=== PATIENT | female | born 1975 | race Caucasian/White ===

== ENCOUNTER 2024-10-14 18:58 | Emergency (ER) | payer OTHER, SELFPAY ==
[2024-10-14 19:02] VITALS: BP 156/111
--- NOTE | 2024-10-14 21:39 | ED.GENMED ---
History of Present Illness
General
Chief Complaint: DVT/Possible Blood Clot
Time Seen by Provider: 10/14/24 21:27
History of Present Illness
History of Present Illness:
Patient is a 48-year-old woman with history of lymphedema to the right lower extremity presenting to the emergency department worsening right lower leg swelling. Patient states that she went to her acupuncture appointment when they noticed that her
right leg was slightly more swollen than usual. Patient denies any recent travel hemoptysis chest pain history of blood clot. She does state that she has had chronic lymphedema secondary to injuries as well as some knee swelling which is old. No
numbness tingling. No weakness. No fevers chills. No redness.
Phy Exam
Physical Exam
Physical Exam:
GENERAL: in no acute distress
HEENT: normocephalic, extraocular movements intact
NECK: normal inspection
RESPIRATORY: no respiratory distress
CARDIOVASCULAR: regular rate and rhythm
EXTREMITIES: non-tender, right lower extremity with mild swelling, no redness or tenderness, 2+ distal pulses, normal cap refill, normal sensation
NEUROLOGIC: awake and alert, moves all extremities
SKIN: warm
Course
Orders/Labs/Results
Orders:
Orders
10/14/24 19:06
US Legs, Right [US Periph Venous LOWER Ext RT] Urgent
Comment:
Reason For Exam: swelling/pain
Vital Signs
Initial and Last Documented VS:
Initial Vital Signs
Temp Pulse Resp BP Pulse Ox
98.9 F 89 16 156/111 96
10/14/24 19:02 10/14/24 19:02 10/14/24 19:02 10/14/24 19:02 10/14/24 19:02
Last Documented Vital Signs
Temp Pulse Resp BP Pulse Ox
98.9 F 89 16 156/111 96
10/14/24 19:02 10/14/24 19:02 10/14/24 19:02 10/14/24 19:02 10/14/24 20:48
MDM/Problems Addressed
Differential Diagnosis Includes:
Patient is a 48-year-old woman with history of right-sided lymphedema presenting to the emergency department with worsening right lower extremity swelling. On arrival vitals are notable for being hypertensive and on exam she does have mild
swelling. Will rule out DVT history and exam not consistent with cellulitis. Ultrasound obtained prior to my evaluation. It is negative for DVT. She does have a Buitrago's cyst as well as a small supratellar effusion. Patient advised on resting
compression wrap and elevating. She does state that she has a compression machine that she uses at home. Patient advised to also watch out for signs of infection. Strict return precautions given. Will discharge at this time.
*Critical Care Note
Total Time (30-74mins, 75-104mins- exclusive of procedures): Not Applicable
ED Attending Note
-
Portions of this chart may have been created with voice recognition software.� Occasional wrong word or��sound alike� substitutions may have occurred due to the inherent limitations of voice recognition software.
Discharge Plan
Departure
Patient Disposition: Home (Routine Discharge)
Date of Disposition: 10/14/24
Time of Disposition: 21:38
Patient with high blood pressure during this ER visit?: Yes
Discharge Problem:
Leg swelling, Buitrago cyst
Instructions: Buitrago's Cyst (DC)
Referrals:
Beatris Tinajero MD [Family Provider] -
Activity Restrictions/Additional Instructions:
You were seen in the Emergency Department today for leg swelling. While you were here we performed an ultrasound, which was reassuring. Please make sure you continue to rest ice elevate and use a compression machine. Please watch out for signs of
infection which include fever redness warmth and/or wound.
We would like for you to follow up with your primary care physician for further evaluation. If you experience fever, worsening of your symptoms, or develop any other new or concerning symptoms, please return to the Emergency Department immediately.
Please see the attached sheet for additional information.
Interventions
Interventions:
*Risk Screen - Suicide Last Done: 10/14/24 19:02
*General Assessment Last Done: 10/14/24 19:02
*Neglect/Abuse Screening Last Done: 10/14/24 19:02
*ED- Fall Risk Assessment Last Done: 10/14/24 19:02
*ED COVID-19 Vaccine History Last Done: 10/14/24 19:02
ED- Cardiac Assessment Last Done: 10/14/24 20:48
ED- Pulmonary Assessment Last Done: 10/14/24 20:48
ED-Peripheral Vascular Assessment Last Done: 10/14/24 20:48
ED-Skin Assessment Last Done: 10/14/24 20:50
Discharge Date and Time
Print Language: TELUGU
== END 2024-10-14 22:08 | disposition home or self-care (01) ==
LOC: EMR 18:58
PROVIDERS: EMERGENCY PHYSICIAN Student in an Organized Health Care Education/Training Program; FAMILY PHYSICIAN Family Medicine; REFERRING PHYSICIAN Family Medicine
DX: M71.21 Synovial cyst of popliteal space [Baker], right knee (principal); R22.41 Localized swelling, mass and lump, right lower limb
CPT/HCPCS: 99284; 93971

== ENCOUNTER 2025-01-13 09:37 | Emergency (ER) | payer OTHER, SELFPAY ==
[2025-01-13 09:37] VITALS: BP 136/100
--- NOTE | 2025-01-13 09:46 | ED.GENMED ---
History of Present Illness
General
Chief Complaint: Musculo-Skeletal Complaint
Time Seen by Provider: 01/13/25 09:45
History of Present Illness
History of Present Illness:
PAST MEDICAL HISTORY AND REVIEW OF OLD RECORDS
- The patient has a history of anxiety and colitis. I reviewed records, the patient was seen here in September diagnosed with a Buitrago's cyst.
Note:
CHIEF COMPLAINT(S)
Left knee pain following reinjury.
HISTORY OF PRESENT ILLNESS
The patient is a 49-year-old female with a history of lymphoedema in the right leg from a prior injury during high school and a Bakers cyst. At the end of September, she experienced knee pain after using a rowing machine. She has attempted alternative
therapies such as acupuncture and leg compression. A few days ago, she reinjured the knee, noting increased swelling and pain extending to the hip and lower back, affecting ambulation. The patient describes sensation as tightness and swelling in the
knee, without significant calf pain. There is some associated clicking but no MRI performed; she has undergone a prior ultrasound.
A physical exam revealed tenderness upon palpation of the outer knee with notable swelling and fluid retention. No signs of bruising or significant calf pain were reported. No imaging was conducted during a prior evaluation.
The patient did not receive any medication for the pain today. There are no upper extremity complaints, and no issues were reported regarding status.
PHYSICAL EXAM
General: Alert, no acute distress.
Skin: Warm, dry.
Musculoskeletal: Mild diffuse tenderness mostly to the lateral joint line of the right knee, small joint effusion noted however the patient also states he has chronic swelling there and has lymphedema to the right lower extremity
Neurological: Alert and oriented to person, place, time, and situation, No focal neurological deficit observed.
Psychiatric: Cooperative, appropriate mood & affect.
PROBLEM LIST
Acute Problems:
- Right knee pain and swelling
- Potential for chronic lymphoedema exacerbation
PLAN
- X-ray of the left knee to evaluate for any possible structural issues or significant arthritis.
- Administer Toradol (ketorolac) for pain management.
- Consider the use of a knee immobilizer to provide support.
- Referral to an sales account specialist, Dr. Jean, for further evaluation and management.
DIFFERENTIAL DIAGNOSIS
The Differential Diagnosis includes, in no particular order and is not limited to:
- Meniscal tear
- Osteoarthritis of the knee
- Buitrago�s cyst rupture
- Patellar tendinitis
- Ligamentous injury (ACL/PCL strain or tear)
- Gout or pseudogout
- Bursitis
- Cartilage damage (e.g., chondromalacia)
- Rheumatoid arthritis
- Septic arthritis
RADIOLOGY
- X-rays obtained�no significant degenerative changes, no fracture
UPDATE
- SUMMARY OF ENCOUNTER
The patient, a 49-year-old female, presented to the emergency department due to right knee pain and swelling following a reinjury. Previously experiencing knee pain since September, she reported increased pain and swelling extending to the hip and lower
back, disrupting ambulation. Physical examination revealed tenderness and swelling in the left knee. An X-ray was performed, which showed mild degenerative changes but no significant abnormalities. The patient was advised to follow up with an
sales account specialist for further evaluation and management.ht
EMERGENCY TREATMENTS ADMINISTERED
The patient was administered a dose of ketorolac (Toradol), a non-narcotic anti-inflammatory medication, for pain management.
PLAN
The patient will be provided with contact information for Dr. Jean, an sales account specialist, for follow-up evaluation. She will also be advised on further use of [id number] medications like ibuprofen for pain management and provided
instructions on appropriate dosing for prescription strength.
MEDICATION RECONCILIATION
Administered ketorolac (Toradol) for pain. Recommended increased dosing of ibuprofen to achieve prescription-strength analgesia.
MEDICAL DECISION MAKING
-Complexity of Data Reviewed: Chronic conditions affecting care include a history of lymphoedema and the differential diagnosis list including meniscal tear, osteoarthritis of the knee, Buitrago�s cyst rupture, patellar tendinitis, ligamentous injury
(ACL/PCL strain or tear), gout or pseudogout, bursitis, cartilage damage (e.g., chondromalacia), rheumatoid arthritis, and septic arthritis.
-Data:
Category 1
My independent interpretation of the X-ray shows mild degenerative changes, but nothing dramatic noted.
Category 3
Discussion of management with sales account specialist, Dr. Jean, is planned for follow-up.
Risk: Prescription medication was prescribed, specifically advising on the increased dosing of ibuprofen for pain management.
DIAGNOSIS
Right knee pain
Overall improved after Toradol. To follow-up with Ortho.
Phy Exam
Physical Exam
Physical Exam:
See HPI
Course
Orders/Labs/Results
Orders:
Orders
01/13/25 09:52
Knee Immobilizer Right-Treatme ONCE
Ketorolac [Toradol] 30 mg IM NOW STA
CR Hip - RT w/wo Pel 2-3 Vw* Urgent
Comment:
Reason For Exam: pain; denies chance of
Include a pelvis x-ray?: Yes
CR Knee- Right 4 Or More View* Urgent
Comment:
Reason For Exam: pain
Vital Signs
Initial and Last Documented VS:
Initial Vital Signs
Temp Pulse Resp BP Pulse Ox
37.3 C 78 17 136/100 95
01/13/25 09:37 01/13/25 09:37 01/13/25 09:37 01/13/25 09:37 01/13/25 09:37
Last Documented Vital Signs
Temp Pulse Resp BP Pulse Ox
37.3 C 69 16 138/92 97
01/13/25 09:37 01/13/25 12:19 01/13/25 12:19 01/13/25 12:19 01/13/25 12:19
*Pulse Oximetry
SaO2: 95
Oxygen Mode of Delivery: Room air
Patient hypoxic: no
*Critical Care Note
Total Time (30-74mins, 75-104mins- exclusive of procedures): Not Applicable
ED Attending Note
-
Portions of this chart may have been created with voice recognition software.� Occasional wrong word or��sound alike� substitutions may have occurred due to the inherent limitations of voice recognition software.
Discharge Plan
Departure
Referrals:
Kirill Jean MD [Active, Orthopedics]
Activity Restrictions/Additional Instructions:
I recommend 3-4 [id number]-[id number] ibuprofen (Motrin) every 8 hours with food for a few days. Return here if worse. I have given you the contact information for a local orthopedist, Dr. Jean.
Interventions
Interventions:
*Risk Screen - Suicide Last Done: 01/13/25 09:39
*General Assessment Last Done: 01/13/25 09:39
*Neglect/Abuse Screening Last Done: 01/13/25 09:39
*ED- Fall Risk Assessment Last Done: 01/13/25 10:07
*ED COVID-19 Vaccine History Last Done: 01/13/25 09:39
ED-Musculoskeletal Assessment Last Done: 01/13/25 10:07
Discharge Date and Time
Print Language: DUTCH
--- NOTE | 2025-01-13 09:50 | EDRN ---
Dr. Cosby in room w/ pt at this time.
[2025-01-13 09:56] VITALS: BMI 33.5
[2025-01-13] MEDS: TORADOL 30 MG IM (10:06)
[2025-01-13 10:15] VITALS: BP 130/93
[2025-01-13 12:19] VITALS: BP 138/92
--- NOTE | 2025-01-13 12:27 | EDRN ---
Dr. Cosby in room w/ pt at this time.
== END 2025-01-13 12:40 | disposition home or self-care (01) ==
LOC: EMR 09:37
PROVIDERS: EMERGENCY PHYSICIAN Emergency Medicine; FAMILY PHYSICIAN Family Medicine
DX: M25.561 Pain in right knee (principal); M25.461 Effusion, right knee; I89.0 Lymphedema, not elsewhere classified
CPT/HCPCS: 29505; 96372; 99284; 73502; 73564